=== PATIENT | female | born 1975 | race Two or more races ===

== ENCOUNTER 2019-12-30 05:30 | Day surgery (SDC) | payer OTHER ==
[~2019-12-30 05:30] MED LIST: IBRANCE75 MG PO; TAMOXIFEN CITRA10 MG PO
[2019-12-30] MEDS ORDERED: Tylenol #3 PO (10:54)
== END 2019-12-30 15:00 | disposition home or self-care (01) ==
LOC: CIR.AMB 05:30
PROVIDERS: ATTEND Obstetrics & Gynecology
DX: N83.291 Other ovarian cyst, right side (principal); N83.292 Other ovarian cyst, left side; Z20.828 Contact with and (suspected) exposure to other viral communicable diseases